=== PATIENT | female | born 1975 | race Caucasian/White ===

== ENCOUNTER → 2024-10-07 11:41 | Outpatient (REF) | payer OTHER, SELFPAY | LOC: WDC 11:41 | PROVIDERS: ATTENDING PHYSICIAN Obstetrics & Gynecology; FAMILY PHYSICIAN Student in an Organized Health Care Education/Training Program | DX: Z12.31 Encounter for screening mammogram for malignant neoplasm of breast (principal) | CPT/HCPCS: 77063; 77067 ==

== ENCOUNTER → 2025-10-08 10:26 | Outpatient (REF) | payer OTHER, SELFPAY | LOC: HWWDC 10:26 | PROVIDERS: ATTENDING PHYSICIAN Obstetrics & Gynecology; FAMILY PHYSICIAN Student in an Organized Health Care Education/Training Program | DX: Z12.31 Encounter for screening mammogram for malignant neoplasm of breast (principal) | CPT/HCPCS: 77063; 77067 ==